=== PATIENT | female | born 1995 | race Caucasian/White ===

== ENCOUNTER 2016-11-18 22:56 | Emergency (ER) | payer OTHER, MEDICAID ==
[~2016-11-18] VITALS: Ht 177.8 cm; Wt 50.0 kg
[~2016-11-18 22:56] MED LIST: METR500T10 PO; PNV-CAP PO
[2016-11-18 22:58] VITALS: BP 121/58; PULSE 68; RESP 16; TEMP 98.5; O2SAT 97
== END 2016-11-18 23:35 | disposition left against medical advice (07) ==
LOC: NED 22:56
DX: N92.0 Excessive and frequent menstruation with regular cycle (principal); Z53.21 Procedure and treatment not carried out due to patient leaving prior to being seen by health care provider
CPT/HCPCS: 99281

== ENCOUNTER 2016-11-22 00:07 | Emergency (ER) | payer OTHER, MEDICAID ==
[~2016-11-22] VITALS: Ht 177.8 cm; Wt 50.0 kg
[2016-11-22 00:10] VITALS: BP 122/83; PULSE 79; RESP 15; TEMP 97.7; O2SAT 100
--- NOTE | 2016-11-22 02:13 | PD ---
HPI Chief Complaint: Stull Hewer Problem/Complaint Time Seen by Provider: 02:02 Travel History International Travel<30 days: No Contact w/Intl Traveler<30days: No Traveled to known affect area: No History of Present Illness HPI 21-year-old female complains of vaginal bleeding. Patient states that she has persistent vaginal bleeding and passing blood clots for the past. Patient states that she used about 3-4 pads a day. Patient denies any headache. Patient denies any chest pain or shortness of breath. Patient denies abdominal pain. Patient states that she has mild intermittent cramping pain in her left lower abdomen pelvic area. Patient denies any pain radiation. Patient denies any dysuria or frequency. Patient denies any fever chills. Patient had pelvic exam and Pap smear done about a month ago and was normal. 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.) Immunizations Current: Yes Migraines: No Seizures: No Sleep Apnea: No Thyroid Disease: No Ulcer: No ?: Unknown LMP: 10/17/16 : 0 Para: 0 Miscarriage: 0 : 0 Past Surgical History Cardiac Surgery: Yes (Ablation Apr 03, 2011) Genitourinary Surgery: No Social History Alcohol Use: Yes (RARE) Tobacco Use: No Substance Use: Yes (MARIJUANA) Allergies-Medications (Allergen,Severity, Reaction): Coded Allergies: No Known Allergies (Verified , 11/22/16) Reported Meds & Prescriptions Reported Meds & Active Scripts Active Metronidazole 500 Mg Tab 500 Mg PO BID 7 Days Metronidazole 500 Mg Tab 500 Mg PO BID Pnv-Dha 27-0.6-0.4-300 mg ( Without A W/ Fe Fumar) 1 Cap Cap 1 Cap PO DAILY Review of Systems General / Constitutional: No: Fever Eyes: No: Visual changes HENT: No: Headaches Cardiovascular: No: Chest Pain or Discomfort Respiratory: No: Shortness of Breath Gastrointestinal: No: Abdominal Pain Genitourinary: Positive: Vaginal Bleeding, No: Dysuria Musculoskeletal: No: Pain Skin: No Rash Neurologic: No: Weakness Psychiatric: No: Depression Endocrine: No: Polydipsia Hematologic/Lymphatic: No: Easy Bruising Physical Exam Narrative GENERAL: Well-nourished, well-developed patient. SKIN: Focused skin assessment warm/dry. HEAD: Normocephalic. EYES: No scleral icterus. No injection or drainage. NECK: Supple, trachea midline. No JVD or lymphadenopathy. CARDIOVASCULAR: Regular rate and rhythm without murmurs, gallops, or rubs. RESPIRATORY: Breath sounds equal bilaterally. No accessory muscle use. GASTROINTESTINAL: Abdomen soft, non-tender, nondistended. MUSCULOSKELETAL: No cyanosis, or edema. BACK: Nontender without obvious deformity. No CVA tenderness. Data Data Last Documented VS Vital Signs Date Time Temp Pulse Resp B/P (MAP) Pulse Ox O2 Delivery O2 Flow Rate FiO2 11/22/16 00:10 97.7 79 15 122/83 (96) 100 Room Air Orders Orders Complete Blood Count With Diff (11/22/16 02:09) Ed Urine Pregnancytest Poc (11/22/16 02:09) Labs Laboratory Tests Test 11/22/16 02:10 White Blood Count 8.5 TH/MM3 Red Blood Count 4.30 MIL/MM3 Hemoglobin 12.6 GM/DL Hematocrit 38.1 % Mean Corpuscular Volume 88.5 FL Mean Corpuscular Hemoglobin 29.2 PG Mean Corpuscular Hemoglobin Concent 33.0 % Red Cell Distribution Width 15.0 % Platelet Count 211 TH/MM3 Mean Platelet Volume 9.0 FL Neutrophils (%) (Auto) 38.6 % Lymphocytes (%) (Auto) 49.7 % Monocytes (%) (Auto) 6.2 % Eosinophils (%) (Auto) 4.4 % Basophils (%) (Auto) 1.1 % Neutrophils # (Auto) 3.3 TH/MM3 Lymphocytes # (Auto) 4.2 TH/MM3 Monocytes # (Auto) 0.5 TH/MM3 Eosinophils # (Auto) 0.4 TH/MM3 Basophils # (Auto) 0.1 TH/MM3 CBC Comment AUTO DIFF Differential Comment AUTO DIFF CONFIRMED Platelet Estimate NORMAL Platelet Morphology Comment NORMAL Red Cell Morphology Comment NORMAL MDM Medical Decision Making Medical Screen Exam Complete: Yes Emergency Medical Condition: Yes Interpretation(s) 3:31 AM. CBC WBC 8.5. Hemoglobin 1.6 hematocrit 30.1. Differential Diagnosis Differential diagnosis including abnormal uterine bleeding, threatened AB, incomplete AB, completed AB, ectopic . Narrative Course 21-year-old female with persistent vaginal bleeding for 2 weeks. Normal Pap smear and pelvic exam done a month ago. Diagnosis Primary Impression: Abnormal uterine bleeding Patient Instructions: General Instructions Additional Instructions: Encourage by mouth fluids. [id number] multivitamin with iron. Follow-up with [facility] physician. Return if worse. Med/Other Pt SpecificInfo: No Change to Meds Disposition: 01 DISCHARGE HOME Condition: Stable Eliecer Johnson MD Nov 22, 2016 02:13
[2016-11-22 02:37] LABS: AUTOMATED NEUTROPHIL # 3.3 TH/MM3 (1.8-7.7); BASOPHIL # 0.1 TH/MM3 (0-0.2); BASOPHIL % 1.1 % (0.0-2.0); EOSINOPHIL # 0.4 TH/MM3 (0-0.4); EOSINOPHIL % 4.4 % (0.0-4.0); HEMATOCRIT 38.1 % (35.0-46.0); LYMPH % 49.7 % (9.0-44.0); LYMPHOCYTE # 4.2 TH/MM3 (1.0-4.8); MEAN CELL VOLUME 88.5 FL (80.0-100.0); MEAN CORPUSCULAR HEMOGLOBIN 29.2 PG (27.0-34.0); MONO % 6.2 % (0.0-8.0); NEUT % 38.6 % (16.0-70.0); PLATELET COUNT 211 TH/MM3 (150-450); WHITE BLOOD COUNT 8.5 TH/MM3 (4.0-11.0)
[2016-11-22 02:40] LABS: HEMO FLAGS AUTO DIFF
[2016-11-22 03:09] LABS: PLATELET ESTIMATE SMEAR NORMAL (NORMAL); PLATELET MORPHOLOGY NORMAL (NORMAL); SCAN/DIFF AUTO DIFF CONFIRMED
== END 2016-11-22 03:56 | disposition home or self-care (01) ==
LOC: NEPC 00:07
DX: N93.9 Abnormal uterine and vaginal bleeding, unspecified (principal); J45.909 Unspecified asthma, uncomplicated
CPT/HCPCS: 84703; 85025; 99283